=== PATIENT | male | born 1980 | race African-American/Black ===

== ENCOUNTER 2018-05-22 19:35 | Emergency (ER) | payer MEDICAID ==
[~2018-05-22] VITALS: Ht 185.4 cm; Wt 95.0 kg
[2018-05-23] MEDS ORDERED: BACITRACIN ZINC OINT UDPKT TOP ONE (01:30)
[2018-05-23 05:11] VITALS: BP 135/86
== END 2018-05-23 05:12 | disposition home or self-care (01) ==
LOC: ER 19:35
DX: Z48.00 Encounter for change or removal of nonsurgical wound dressing (principal); L03.115 Cellulitis of right lower limb; M79.651 Pain in right thigh
CPT/HCPCS: 93971; 99284; X7700; Z7610

== ENCOUNTER 2019-01-17 14:58 | Emergency (ER) | payer MEDICAID ==
[~2019-01-17] VITALS: Ht 182.9 cm; Wt 90.0 kg
[2019-01-17 18:42] VITALS: BP 158/115
== END 2019-01-17 18:51 | disposition left against medical advice (07) ==
LOC: ER 15:44
DX: M79.672 Pain in left foot (principal); Z53.21 Procedure and treatment not carried out due to patient leaving prior to being seen by health care provider

== ENCOUNTER 2019-02-17 11:31 | Emergency (ER) | payer MEDICAID ==
[~2019-02-17] VITALS: Ht 182.9 cm; Wt 100.0 kg
[2019-02-17] MEDS ORDERED: IBUPROFEN 600MG TABLET PO ONE (12:15)
[2019-02-17 13:34] VITALS: BP 132/87
== END 2019-02-17 13:00 | disposition home or self-care (01) ==
LOC: ER 11:31
DX: M79.672 Pain in left foot (principal); T56.891A Toxic effect of other metals, accidental (unintentional), initial encounter; L23.0 Allergic contact dermatitis due to metals; Y92.89 Other specified places as the place of occurrence of the external cause; F17.210 Nicotine dependence, cigarettes, uncomplicated
CPT/HCPCS: 73650; 99283